=== PATIENT | female | born 1950 | race African-American/Black ===

== ENCOUNTER 2016-09-12 07:37 | Emergency (ER) | payer OTHER, MEDICARE ==
--- NOTE | 2016-09-12 08:27 | ERRECORD ---
[facility] EMERGENCY RECORD HPI FOOT (07:54 ABUS) CHIEF COMPLAINT: Patient presents for evaluation of injury, to the right foot, Patient presents for evaluation of pain, to the right foot. HISTORIAN: History provided by patient, 66 yr old with PMH of HTN who comes in with R foot injury (stepped into a hole while walking out in yard) and has had pain since then. She tried some aspirin. Can move toes and has normal feeling. MECHANISM OF INJURY: Mechanism of injury: Body motion. LOCATION: Symptoms are generalized. QUALITY: Pain is dull in nature, described as aching. SEVERITY: Currently symptoms are mild. TIME COURSE: Gradual onset of symptoms, 1, days priror to arrival, There has been no change in the patient's symptoms over time. ASSOCIATED WITH: Associated with pain on walking. EXACERBATED BY: Patient's condition exacerbated by nothing. RELIEVED BY: Patient's condition relieved by nothing. ROS (07:56 ABUS) CONSTITUTIONAL: Negative constitutional review of systems, Historian denies chills, denies fever. CARDIOVASCULAR: Negative cardiovascular review of systems, Historian denies chest pain, denies palpitations. RESPIRATORY: Negative respiratory review of systems, Historian denies cough, denies shortness of breath. GI: Negative gastrointestinal review of systems, Historian denies abdominal pain, denies constipation, denies diarrhea, denies nausea, denies vomiting. GENITOURINARY FEMALE: Negative genitourinary review of systems, Historian denies dysuria, denies frequency. MUSCULOSKELETAL: Historian reports arthralgias, reports injury. SKIN: Negative skin review of systems, Historian denies rash, denies skin changes. NEUROLOGIC: Negative neurologic review of systems, Historian denies headache. HEMO/LYMPHATIC: Normal hematologic/lymphatic system review, Historian denies abnormal blood clotting. PAST MEDICAL HISTORY (07:51 SFRE) MEDICAL HISTORY: Pneumococcal vaccine not up to date, Past medical history includes gastrointestinal disease, cirrhosis, Flu vaccine up to date, Tetanus immunization up to date, , Past medical history includes history of hypertension, which has been treated, Notes: Past medical history includes history of diabetes (DIET CONTROLLED), Past medical history includes history of hypertension, which has been treated, Past medical history includes history of malignancy, primary site breast. - was Left Breast - CA removed. Has "fluid in chest". &a-1R&a+25V*p+0X*s6193N*c202B*c15G*c2P*p-0X&a-25V&a+1R Name: Lj Schulte : 1950 F66 MedRec: [id number] AcctNum: [id number] Prepared: Alyssia Sep 12, 2016 08:43 by Interface Page 1 of 3 pMD [facility] EMERGENCY RECORD FEMALE SURGICAL HISTORY: Surgical history of cholecystectomy, Surgical history of hysterectomy, BREAST CA REMOVAL LEFT (LUMPECTOMY), Surgical history of hysterectomy. Large surgical scar - mid abdomen - patient states "I had roast of the liver. They did surgery." When asked what was done during surgery patient states, "I was asleep". "They took a lot of little things out.". PSYCHIATRIC HISTORY: Notes: denies, Notes: DENIES, Notes: DENIES. GERMAIN. 01-30-16. SOCIAL HISTORY: Patient denies alcohol use, Patient denies drug use, Patient has no smoking history, Lives at home, with family,. KNOWN ALLERGIES No Known Drug Allergies CURRENT MEDICATIONS (07:48 SFRE) amLODIPine: TABLET : Strength - 5 mg : ORAL Patient Dose: 10 mg Oral once a day. VITAL SIGNS (07:47 SFRE) VITAL SIGNS: BP: 120/65, Pulse: 73, Resp: 18, Temp: 97.8 (Tympanic), Pain: 9 (Sharp), O2 sat: 100 on Room Air, Time: 09/12/2016 07:47. PHYSICAL EXAM (07:56 ABUS) CONSTITUTIONAL: Vital signs reviewed, Patient afebrile, Pulse normal, Blood pressure normal, Respiratory rate normal, Patient appears non toxic, Patient appears pain free, Patient alert and oriented to person, place and time. NECK: Neck exam normal, Neck exam included findings of normal range of motion, Trachea midline, no meningeal signs, no cervical adenopathy, no tenderness. RESPIRATORY CHEST: Respiratory and chest exam normal, Respiratory exam included findings of no respiratory distress, Breath sounds clear. CARDIOVASCULAR: Cardiovascular assessment normal, Cardiovascular exam included findings of heart rate regular rate and rhythm, Heart sounds normal. ABDOMEN FEMALE: Abdominal exam included findings of abdomen nontender, Bowel sounds normal, no distension, no mass, no pulsatile masses, no peritoneal signs, no rigidity, no guarding, no rebound, Rovsing's sign absent. BACK: Back exam normal, Back exam included findings of normal inspection, range of motion normal, no tenderness. LOWER EXTREMITY: Sensation intact, Posterior tibial pulse normal, Pedal pulse normal, distal pulses intact, capillary refill less than 2 seconds, distal motor intact, distal sensory intact, no cyanosis, no clubbing, no edema. NEURO: Neuro exam normal, Neuro exam findings include patient &a-1R&a+25V*p+0X*h1181H*c202B*c15G*c2P*p-0X&a-25V&a+1R Name: Lj Schulte : 1950 F66 MedRec: [id number] AcctNum: [id number] Prepared: Alyssia Sep 12, 2016 08:43 by Interface Page 2 of 3 pMD [facility] EMERGENCY RECORD oriented to person, place and time, Speech normal, Gait normal. SKIN: Skin exam normal, Skin exam included findings of skin warm, dry, and normal in color, no rash. RADIOLOGYINTERPRETATION (08:20 ABUS) LOWER EXTREMITIES: Ankle films negative, on the right, no fracture, no dislocation, no foreign body, no bony lesion, Mortise normal. APPLICATION SOFTWARE DEVELOPER: Preliminary review of x-rays by, ED Physician, Radiologist. DOCTOR NOTES (07:56 ABUS) TEXT: 66 yr old with PMH of HTN who comes in with R foot injury (stepped into a hole while walking out in yard) and has had pain since then. She tried some aspirin. Can move toes and has normal feeling. DDX: Muscle strain, Muscle Spasm, Ligamentous Injury, Contusion, Soft Tissue Injury, Arthritis, Degenerative Joint Disease PLAN: Analgesics, X-ray IMAGING: Negative for acute fracture or dislocation DX: Ankle sprain Final Dispo: D/C Home with regular follow up and return precautions. All results of testing and evaluation were shared with the patient who verbalized understanding and agreement with the plan of care. Level of Complexity / Medical Decision Making: Moderate. PROBLEM LIST No recorded problems DIAGNOSIS (08:21 ABUS) FINAL: PRIMARY: Foot injury. PRESCRIPTION (07:58 ABUS) acetaminophen-codeine: TABLET : 300 mg-30 mg : ORAL : Quantity: 1 Unit: tab(s) Route: ORAL Schedule: every 6 hours PRN Dispense: 8 Unit: tab(s) May substitute. Refills: No Refills . NOTES: No Refills. DISPOSITION PATIENT: Disposition Type: Discharge, Disposition: *Discharge Home, Condition: Good. (08:21 ABUS) Patient left the department. (08:41 YAWE) Kim: AB=MD Yamile, Drake SFRE=REMY Ch, Laurie &a-1R&a+25V*p+0X*v0915O*c202B*c15G*c2P*p-0X&a-25V&a+1R Name: Lj Schulte : 1950 F66 MedRec: [id number] AcctNum: [id number] Prepared: Alyssia Sep 12, 2016 08:43 by Interface Page 3 of 3 pMD MTDD
--- NOTE | 2016-09-12 08:33 | PICIS ---
[facility] EMERGENCY RECORD TRIAGE (SunSep 12, 2016 07:48 SFRE) PATIENT: NAME: Lj Schulte, AGE: 66, GENDER: female, : Sun1950, TIME OF GREET: SunSep 12, 2016 07:38, PREFERRED LANGUAGE: Turkish, ETHNICITY: Not or , FALL RISK: NO, ECODE BILLING MAP: [facility], SSN: [id number], Zip Code: [address], KG WEIGHT: 63.50, PHONE: , , , PERSON ID: [id number], PCP: DO Chase Hillary. (SunSep 12, 2016 07:48 SFRE) TRIAGE NOTES: RIGHT FOOT INJURY. (SunSep 12, 2016 07:48 SFRE) COMPLAINT: RIGHT FT INJURY. (07:53 SFRE) ADMISSION: URGENCY: 4 Non Urgent, ADMISSION SOURCE: Home, TRANSPORT: Walk-in, BED: ED -05. (SunSep 12, 2016 07:48 SFRE) IMMUNIZATIONS: Flu vaccine up to date, Date of immunization: 2015, Pneumococcal vaccine not up to date. (07:51 SFRE) SIRS SCORING: Heart Rate 55-109 (0), Temp range 96.8-101.1 (0), respiratory rate 12-24 (0), Mental Status altered: no (0). (07:51 SFRE) TRIAGE SCREENING: Patient denies suicidal ideation, Patient denies presence of domestic violence. (07:51 SFRE) PROVIDERS: TRIAGE NURSE: Laurie Ch RN. (SunSep 12, 2016 07:48 SFRE) VITAL SIGNS: BP 120/65, Pulse 73, Resp 18, Temp 97.8, (Tympanic), Pain 9, (Sharp), O2 Sat 100, on Room Air, Time 09/12/2016 07:47. (07:47 SFRE) PREVIOUS VISIT ALLERGIES: No Known Drug Allergies. (SunSep 12, 2016 07:48 SFRE) No Known Drug Allergies. (07:51 SFRE) KNOWN ALLERGIES No Known Drug Allergies CURRENT MEDICATIONS (07:48 SFRE) amLODIPine: TABLET : Strength - 5 mg : ORAL Patient Dose: 10 mg Oral once a day. VITAL SIGNS (:47 SFRE) VITAL SIGNS: BP: 120/65, Pulse: 73, Resp: 18, Temp: 97.8 (Tympanic), Pain: 9 (Sharp), O2 sat: 100 on Room Air, Time: 09/12/2016 07:47. NURSING ASSESSMENT: EXTREMITY LOWER TRAUMA (07:55 SFRE) CONSTITUTIONAL: Patient arrives ambulatory, Gait steady, History obtained from patient, Patient appears, in distress due to pain, Patient cooperative, Patient alert, Oriented to person, place and time, Skin warm, Skin dry, Skin normal in color, Mucous membranes pink, Mucous membranes moist, Patient is well-groomed, Patient complains of RIGHT FOOT PAIN. MECHANISM OF INJURY: Mechanism of injury fall, &a-1R&a+25V*p+0X*t5204Y*c202B*c15G*c2P*p-0X&a-25V&a+1R Name: Lj Schulte : 1950 F66 MedRec: [id number] AcctNum: [id number] Prepared: d[place] Sep 12, 2016 08:50 by Interface Page 1 of 6 pMD [facility] EMERGENCY RECORD from standing, from height less than 3 feet, landing on right side, REPORTS SHE STEPPED IN A HOLE YESTERDAY. PAIN: sharp pain, to the right ankle, to the right foot, Onset of pain 09/11/2016, on a scale 0-10 patient rates pain as 9, Pain exacerbated by, ambulation, Nothing has been tried to alleviate the pain. RIGHT LOWER EXTREMITY: Right lower extremity assessment findings include capillary refill less than 2 seconds, Skin color normal, Skin temperature warm, Distal sensation intact, Muscle tone normal, Inspection findings include no abrasions, Inspection findings include no contusion, Inspection findings include no deformity, Inspection findings include no redness, Inspection findings include no signs of trauma, Inspection findings include no swelling. SAFETY: Side rails up, Cart/Stretcher in lowest position, Call light within reach, Hospital ID band on. NURSING PROCEDURE: DISCHARGE NOTE (08:40 SFRE) DISCHARGE: Patient discharged to home, ambulating without assistance, driving self, unaccompanied, Summary of Care printed/ provided, Patient requested and was provided an electronic copy of Discharge Instructions, Discharge instructions given to patient, Simple or moderate discharge teaching performed, by REMY VALENTE, F/U WITH PCP. RX DIRECTED. RETURN TO ED NEEDED FOR NEW/CONCERNING OR WORSENING SYMPTOMS., Prescriptions given and instructions on side effects given, Name of prescription(s) given: T3, Above person(s) verbalized understanding of discharge instructions and follow-up care. NURSING PROCEDURE: SPLINTING (08:39 SFRE) SPLINTING: Splinting indicated for pain control, Splint applied to, on the right foot, by REMY VALENTE, 4 inch aruna wrap applied, Immobilized in position of comfort. NURSING PROCEDURE: TRANSPORT TO TESTS (08:02 SFRE) TRANSPORT TO TESTS: Transport indicated to facilitate diagnosis, Patient transported to x-ray, via wheelchair, Accompanied by x-ray deburr technician. ORDER DETAILS Order Name: Miscellaneous Nurse Order(s), Status: Done, Time: 07:59 09/12/2016, User: GAETANO, - Ordered for: MD Ovalle Anthony, - Entered by: MD Ovalle Anthony - Tue Sep 12, 2016 07:58, - Quantity: 1, Order Name: XR Ankle Rt 3 View STANDARD, Status: Active, Time: 07:51 09/12/2016, User: GAETANO, - Ordered for: MD Ovalle Anthony, &a-1R&a+25V*p+0X*l9316B*c202B*c15G*c2P*p-0X&a-25V&a+1R Name: Lj Schulte : 1950 F66 MedRec: [id number] AcctNum: [id number] Prepared: Alyssia Sep 12, 2016 08:50 by Interface Page 2 of 6 pMD [facility] EMERGENCY RECORD - Entered by: REMY Ch Stacey - Tue Sep 12, 2016 07:51, - Quantity: 1, Order Name: XR Foot Rt 3 View STANDARD, Status: Active, Time: 07:51 09/12/2016, User: GAETANO, - Ordered for: MD Ovalle Anthony, - Entered by: REMY Ch Stacey - Tue Sep 12, 2016 07:51, - Quantity: 1. HPI FOOT (07:54 ABUS) CHIEF COMPLAINT: Patient presents for evaluation of injury, to the right foot, Patient presents for evaluation of pain, to the right foot. HISTORIAN: History provided by patient, 66 yr old with PMH of HTN who comes in with R foot injury (stepped into a hole while walking out in yard) and has had pain since then. She tried some aspirin. Can move toes and has normal feeling. MECHANISM OF INJURY: Mechanism of injury: Body motion. LOCATION: Symptoms are generalized. QUALITY: Pain is dull in nature, described as aching. SEVERITY: Currently symptoms are mild. TIME COURSE: Gradual onset of symptoms, 1, days priror to arrival, There has been no change in the patient's symptoms over time. ASSOCIATED WITH: Associated with pain on walking. EXACERBATED BY: Patient's condition exacerbated by nothing. RELIEVED BY: Patient's condition relieved by nothing. ROS (07:56 ABUS) CONSTITUTIONAL: Negative constitutional review of systems, Historian denies chills, denies fever. CARDIOVASCULAR: Negative cardiovascular review of systems, Historian denies chest pain, denies palpitations. RESPIRATORY: Negative respiratory review of systems, Historian denies cough, denies shortness of breath. GI: Negative gastrointestinal review of systems, Historian denies abdominal pain, denies constipation, denies diarrhea, denies nausea, denies vomiting. GENITOURINARY FEMALE: Negative genitourinary review of systems, Historian denies dysuria, denies frequency. MUSCULOSKELETAL: Historian reports arthralgias, reports injury. SKIN: Negative skin review of systems, Historian denies rash, denies skin changes. NEUROLOGIC: Negative neurologic review of systems, Historian denies headache. HEMO/LYMPHATIC: Normal hematologic/lymphatic system review, Historian denies abnormal blood clotting. PAST MEDICAL HISTORY (07:51 SFRE) MEDICAL HISTORY: Pneumococcal vaccine not up to date, &a-1R&a+25V*p+0X*q8755U*c202B*c15G*c2P*p-0X&a-25V&a+1R Name: Lj Schulte : 1950 F66 MedRec: [id number] AcctNum: [id number] Prepared: Alyssia Sep 12, 2016 08:50 by Interface Page 3 of 6 pMD [facility] EMERGENCY RECORD Past medical history includes gastrointestinal disease, cirrhosis, Flu vaccine up to date, Tetanus immunization up to date, , Past medical history includes history of hypertension, which has been treated, Notes: Past medical history includes history of diabetes (DIET CONTROLLED), Past medical history includes history of hypertension, which has been treated, Past medical history includes history of malignancy, primary site breast. - was Left Breast - CA removed. Has "fluid in chest". FEMALE SURGICAL HISTORY: Surgical history of cholecystectomy, Surgical history of hysterectomy, BREAST CA REMOVAL LEFT (LUMPECTOMY), Surgical history of hysterectomy. Large surgical scar - mid abdomen - patient states "I had roast of the liver. They did surgery." When asked what was done during surgery patient states, "I was asleep". "They took a lot of little things out.". PSYCHIATRIC HISTORY: Notes: denies, Notes: DENIES, Notes: DENIES. GERMAIN. 01-30-16. SOCIAL HISTORY: Patient denies alcohol use, Patient denies drug use, Patient has no smoking history, Lives at home, with family,. PHYSICAL EXAM (07:56 ABUS) CONSTITUTIONAL: Vital signs reviewed, Patient afebrile, Pulse normal, Blood pressure normal, Respiratory rate normal, Patient appears non toxic, Patient appears pain free, Patient alert and oriented to person, place and time. NECK: Neck exam normal, Neck exam included findings of normal range of motion, Trachea midline, no meningeal signs, no cervical adenopathy, no tenderness. RESPIRATORY CHEST: Respiratory and chest exam normal, Respiratory exam included findings of no respiratory distress, Breath sounds clear. CARDIOVASCULAR: Cardiovascular assessment normal, Cardiovascular exam included findings of heart rate regular rate and rhythm, Heart sounds normal. ABDOMEN FEMALE: Abdominal exam included findings of abdomen nontender, Bowel sounds normal, no distension, no mass, no pulsatile masses, no peritoneal signs, no rigidity, no guarding, no rebound, Rovsing's sign absent. BACK: Back exam normal, Back exam included findings of normal inspection, range of motion normal, no tenderness. LOWER EXTREMITY: Sensation intact, Posterior tibial pulse normal, Pedal pulse normal, distal pulses intact, capillary refill less than 2 seconds, distal motor intact, distal sensory intact, no cyanosis, no clubbing, no edema. NEURO: Neuro exam normal, Neuro exam findings include patient oriented to person, place and time, Speech normal, Gait normal. SKIN: Skin exam normal, Skin exam included findings of skin warm, dry, and normal in color, no rash. EVENTS &a-1R&a+25V*p+0X*z1767X*c202B*c15G*c2P*p-0X&a-25V&a+1R Name: Lj Schulte : 1950 F66 MedRec: [id number] AcctNum: [id number] Prepared: SunSep 12, 2016 08:50 by Interface Page 4 of 6 pMD [facility] EMERGENCY RECORD TRANSFER: Triage to Emergency Main ED -05. (SunSep 12, 2016 07:48 SFRE) Removed from Emergency Main ED -05. (08:41 SFRE) RADIOLOGYINTERPRETATION (08:20 ABUS) LOWER EXTREMITIES: Ankle films negative, on the right, no fracture, no dislocation, no foreign body, no bony lesion, Mortise normal. CLERK ANALYST: Preliminary review of x-rays by, ED Physician, Radiologist. DOCTOR NOTES (07:56 ABUS) TEXT: 66 yr old with PMH of HTN who comes in with R foot injury (stepped into a hole while walking out in yard) and has had pain since then. She tried some aspirin. Can move toes and has normal feeling. DDX: Muscle strain, Muscle Spasm, Ligamentous Injury, Contusion, Soft Tissue Injury, Arthritis, Degenerative Joint Disease PLAN: Analgesics, X-ray IMAGING: Negative for acute fracture or dislocation DX: Ankle sprain Final Dispo: D/C Home with regular follow up and return precautions. All results of testing and evaluation were shared with the patient who verbalized understanding and agreement with the plan of care. Level of Complexity / Medical Decision Making: Moderate. PROBLEM LIST No recorded problems DIAGNOSIS (08:21 ABUS) FINAL: PRIMARY: Foot injury. DISPOSITION PATIENT: Disposition Type: Discharge, Disposition: *Discharge Home, Condition: Good. (08:21 ABUS) Patient left the department. (08:41 SFRE) INSTRUCTION (08:22 ABUS) DISCHARGE: FOOT SPRAIN. FOLLOWUP: DO Cahse Hillary, [facility], [address] [place] [id number], , Follow up with Primary Care Physician as needed. SPECIAL: As discussed in the ER before you left, please follow up with your primary care doctor or call the referral made for you here in the ED today to establish outpatient follow up for your medical care. Please come back sooner if you start to develop fever, worsening pain, swelling, or symptoms that are new or symptoms the concern you. PRESCRIPTION (07:58 ABUS) &a-1R&a+25V*p+0X*x0321T*c202B*c15G*c2P*p-0X&a-25V&a+1R Name: Lj Schulte : 1950 F66 MedRec: [id number] AcctNum: [id number] Prepared: SunSep 12, 2016 08:50 by Interface Page 5 of 6 pMD [facility] EMERGENCY RECORD acetaminophen-codeine: TABLET : 300 mg-30 mg : ORAL : Quantity: 1 Unit: tab(s) Route: ORAL Schedule: every 6 hours PRN Dispense: 8 Unit: tab(s) May substitute. Refills: No Refills . NOTES: No Refills. IMAGING (08:39 SFRE) *DISCHARGE INSTRUCTIONS RECEIPT: Image captured from scanner. *SUPPLY CHARGE SHEET: Image captured from scanner. ADMIN DIGITAL SIGNATURE: MD Ovalle Anthony. (08:22 ABUS) MD Ovalle Anthony. (08:23 ABUS) REMY Ch Stacey. (08:40 SFRE) Kim: ABUS=MD Ovalle Anthony SFRE=REMY Ch Stacey &a-1R&a+25V*p+0X*o6555X*c202B*c15G*c2P*p-0X&a-25V&a+1R Name: Lj Schulte : 1950 F66 MedRec: [id number] AcctNum: [id number] Prepared: SunSep 12, 2016 08:50 by Interface Page 6 of 6 pMD MTDD
--- NOTE | 2016-09-12 09:17 | RAD ---
THREE VIEW RIGHT ANKLE: Indication: Stepped in a hole, pain. FINDINGS: No fracture or dislocation. There is prominent enthesopathy at the calcaneus. Scattered osteophyto sis. IMPRESSION: No acute fracture. POS: [facility]
--- NOTE | 2016-09-12 09:18 | RAD ---
THREE VIEW RIGHT FOOT: Indication: Stepping injury with pain. FINDINGS: Chronic appearing fracture deformity of the distal fourth metatarsal is present. No lisfranc disloc ation. Prominent calcaneal enthesopathy present. IMPRESSION: No acute process. POS: [facility]
== END 2016-09-12 08:35 | disposition home or self-care (01) ==
LOC: MADERS 07:37
DX: S99.921A Unspecified injury of right foot, initial encounter (principal); I10 Essential (primary) hypertension; E11.9 Type 2 diabetes mellitus without complications; Z79.899 Other long term (current) drug therapy; X58.XXXA Exposure to other specified factors, initial encounter
CPT/HCPCS: 99283

== ENCOUNTER 2016-10-03 09:27 | Outpatient (CLI) | payer OTHER, MEDICARE ==
[2016-10-03 10:03] LABS: #Basophils 0.1 thou/uL (0.0-0.2); #Eosinphils 0.1 thou/uL (0.0-0.7); #Lymphocytes 1.5 thou/uL (1.20-3.40); #Monocytes 0.3 thou/uL (0.11-0.59); #Neutrophils 2.5 thou/uL (1.40-6.50); %Basophils 1.6 % (0.0-1.0); %Eosinophils 2.5 % (0.0-10.0); %Lymphocytes 32.6 % (21.0-51.0); %Monocytes 7.2 % (0.0-10.0); %Neutrophils 56.2 % (42.0-75.0); Mean Corpuscular HGB CONC 31.6 g/dL (32.0-36.0); Mean Corpuscular Hemoglobin 26.9 pg (27.0-31.0); Mean Corpuscular Volume 84.9 fl (81.0-99.0); Mean Platelet Volume 9.7 fL (7.4-10.4); Platelet Count 197 thou/uL (130-400); RBC Distribution Width 11.7 % (11.5-14.5); Red Blood Cell (RBC) Count 4.84 mill/uL (4.20-5.40); White Blood Cell (WBC) Count 4.5 thou/uL (4.8-10.8)
[2016-10-03 10:17] LABS: INR-International Normal Ratio 1.1; Prothrombin Time 14.2 SEC (12.0-14.7)
[2016-10-03 10:27] LABS: ALT (SGPT) 16 U/L (0-55); AST (SGOT) 15 U/L (5-34); Albumin 4.5 g/dL (3.4-4.8); Alkaline Phosphatase 91 U/L (40-150); Anion Gap 18 mmol/L (10-20); BUN (Urea Nitrogen) 10 mg/dL (9.8-20.1); Bilirubin, Total 0.6 mg/dL (0.2-1.2); Calc. Creatinine Clearance 0 mL/min (70-130); Calcium 10.1 mg/dL (7.8-10.44); Carbon Dioxide 24 mmol/L (23-31); Cardiac Risk 3.7 (Less than 4.5); Chloride 102 mmol/L (98-107); Cholesterol 176 mg/dL (< 200 Desired); Estimated GFR-MDRD Greater than 90; Gamma GT (GGT) 55 U/L (9-36); Globulin 3.4 g/dL (2.4-3.5); Glucose 132 mg/dL (80-115); HDL Cholesterol 48 mg/dL (>60 Neg Risk); LDL Cholesterol, Calculated 101 mg/dL; Potassium 3.9 mmol/L (3.5-5.1); Protein, Total 7.9 g/dL (5.8-8.1); Sodium 140 mmol/L (136-145); Triglycerides 133 mg/dL (Less than 150)
== END 2016-10-03 09:28 | disposition home or self-care (01) ==
LOC: MADLABBHPM 09:27
PROVIDERS: ATTEND Family Medicine
DX: E11.9 Type 2 diabetes mellitus without complications (principal); K74.60 Unspecified cirrhosis of liver; M54.5 Low back pain
CPT/HCPCS: 36415; 80053; 80061; 82977; 83036; 85025; 85610; 87086

== ENCOUNTER 2016-11-21 06:22 | Emergency (ER) | payer OTHER, MEDICARE ==
[2016-11-21 06:49] LABS: Bilirubin Negative (Negative); Blood, Urine Negative (Negative); Clarity Clear (Clear); Glucose, Urine (Dipstick) Negative (Negative); Leukocyte Negative (Negative); Nitrite Negative (Negative); Protein, Urine (Dipstick) Negative (Neg-Trace); Specific Gravity, Urine 1.025 (1.005-1.030); pH, Urine 5.5 (5.0-9.0)
[2016-11-21 06:52] LABS: Bacteria/HPF Rare-Few HPF (None Seen); RBC/HPF 0-3 HPF (0-3); Squamous Epithelial 0-3 HPF (0-3)
== END 2016-11-21 07:13 | disposition home or self-care (01) ==
LOC: MADERS 06:22
DX: N30.90 Cystitis, unspecified without hematuria (principal); J02.8 Acute pharyngitis due to other specified organisms; I10 Essential (primary) hypertension; E11.9 Type 2 diabetes mellitus without complications
CPT/HCPCS: 81003; 81015; 99283

== ENCOUNTER 2017-02-13 09:00 | Emergency (ER) | payer OTHER, MEDICARE ==
[2017-02-13] MEDS ORDERED: Naproxen 500 MG TAB ONE (09:29)
[2017-02-13] MEDS ORDERED: Benzonatate 100 MG CAP ONE (09:29)
[2017-02-13] MEDS ORDERED: AMOXicillin 250 MG CAP ONE (09:30)
== END 2017-02-13 09:41 | disposition home or self-care (01) ==
LOC: MADERS 09:00
DX: J20.9 Acute bronchitis, unspecified (principal); I10 Essential (primary) hypertension; E11.9 Type 2 diabetes mellitus without complications; Z79.82 Long term (current) use of aspirin; Z79.899 Other long term (current) drug therapy; Z79.84 Long term (current) use of oral hypoglycemic drugs
CPT/HCPCS: 99283

== ENCOUNTER 2017-03-22 10:10 | Emergency (ER) | payer OTHER, MEDICARE ==
[2017-03-22] MEDS ORDERED: predniSONE 20 MG TAB ONE (11:11)
[2017-03-22] MEDS ORDERED: diphenhydrAMINE HCl 25 MG CAP ONE (11:11)
== END 2017-03-22 11:18 | disposition home or self-care (01) ==
LOC: MADERS 10:10
DX: T63.441A Toxic effect of venom of bees, accidental (unintentional), initial encounter (principal); K74.60 Unspecified cirrhosis of liver; I10 Essential (primary) hypertension; E11.9 Type 2 diabetes mellitus without complications
CPT/HCPCS: 99282; J7506

== ENCOUNTER 2017-04-10 10:25 | Outpatient (CLI) | payer MEDICARE ==
[2017-04-10 11:09] LABS: Hemoglobin A1c 8.3 % (4.0-6.0)
[2017-04-10 11:23] LABS: ALT (SGPT) 21 U/L (8-55); AST (SGOT) 15 U/L (5-34); Albumin 4.2 g/dL (3.4-4.8); Alkaline Phosphatase 91 U/L (40-150); Anion Gap 15 mmol/L (10-20); BUN (Urea Nitrogen) 9 mg/dL (9.8-20.1); Bilirubin, Total 0.5 mg/dL (0.2-1.2); Calc. Creatinine Clearance 0 mL/min (70-130); Calcium 9.7 mg/dL (7.8-10.44); Carbon Dioxide 27 mmol/L (23-31); Chloride 100 mmol/L (98-107); Estimated GFR-MDRD Greater than 90; Globulin 3.6 g/dL (2.4-3.5); Glucose 244 mg/dL (80-115); Potassium 3.9 mmol/L (3.5-5.1); Protein, Total 7.8 g/dL (6.0-8.3); Sodium 138 mmol/L (136-145)
[2017-04-11 00:31] LABS: Creatinine, Urine 141.88 mg/dL (47-110); Microalbumin Urine Less than 1.0 mg/dL (0.5-50.0)
== END 2017-04-10 10:26 | disposition home or self-care (01) ==
LOC: MADLABBHPM 10:25
PROVIDERS: ATTEND Family Medicine
DX: E11.9 Type 2 diabetes mellitus without complications (principal); K74.60 Unspecified cirrhosis of liver
CPT/HCPCS: 36415; 80053; 82043; 82140; 83036

== ENCOUNTER 2017-06-11 19:30 | Emergency (ER) | payer OTHER, MEDICARE ==
[~2017-06-11 19:30] MED LIST: Sodium Chloride 0.9% 1,000 ML BAG ONE
[2017-06-11] MEDS ORDERED: Morphine 10 MG/ML VIAL ONE (20:55)
[2017-06-11] MEDS ORDERED: Ondansetron HCl/PF 4 MG/2 ML Vial ONE (20:55)
[2017-06-11] MEDS ORDERED: Metoclopramide HCl 10 MG/2 ML VIAL ONE (20:55)
--- NOTE | 2017-06-11 21:27 | RAD ---
AP CHEST: History: Abdominal pain, vomiting. FINDINGS: The lungs are well aerated. No evidence of active intrathoracic disease seen. No evidence of effusio ns, pneumonia, or pneumothorax seen. Calcification of the aorta is seen. IMPRESSION: Unremarkable AP chest. POS: [facility]
[2017-06-11 21:30] LABS: ALT (SGPT) 30 U/L (8-55); AST (SGOT) 18 U/L (5-34); Alkaline Phosphatase 70 U/L (40-150); Anion Gap 20 mmol/L (10-20); BUN (Urea Nitrogen) 24 mg/dL (9.8-20.1); Bilirubin, Total 1.2 mg/dL (0.2-1.2); Calc. Creatinine Clearance 0 mL/min (70-130); Calcium 9.9 mg/dL (7.8-10.44); Carbon Dioxide 24 mmol/L (23-31); Chloride 100 mmol/L (98-107); Estimated GFR-MDRD Greater than 90; Globulin 3.9 g/dL (2.4-3.5); Glucose 198 mg/dL (80-115); Lipase 31 U/L (8-78); Potassium 3.7 mmol/L (3.5-5.1); Protein, Total 7.9 g/dL (6.0-8.3); Sodium 140 mmol/L (136-145)
[2017-06-11 21:31] LABS: #Basophils 0.1 thou/uL (0.0-0.2); #Lymphocytes 1.1 thou/uL (1.20-3.40); #Monocytes 0.8 thou/uL (0.11-0.59); #Neutrophils 10.1 thou/uL (1.40-6.50); %Basophils 0.7 % (0.0-1.0); %Eosinophils 0.1 % (0.0-10.0); %Lymphocytes 8.8 % (21.0-51.0); %Monocytes 6.9 % (0.0-10.0); %Neutrophils 83.5 % (42.0-75.0); Mean Corpuscular HGB CONC 32.5 g/dL (32.0-36.0); Mean Corpuscular Hemoglobin 27.9 pg (27.0-31.0); Mean Corpuscular Volume 85.8 fl (81.0-99.0); Platelet Count 273 thou/uL (130-400); RBC Distribution Width 11.9 % (11.5-14.5); Red Blood Cell (RBC) Count 5.01 mill/uL (4.20-5.40); White Blood Cell (WBC) Count 12.1 thou/uL (4.8-10.8)
[2017-06-11 22:05] LABS: Bilirubin Moderate (Negative); Blood, Urine Negative (Negative); Glucose, Urine (Dipstick) Negative (Negative); Leukocyte Negative (Negative); Nitrite Negative (Negative); Protein, Urine (Dipstick) 100 mg/dL (Neg-Trace); Specific Gravity, Urine 1.025 (1.005-1.030); Urobilinogen 0.2 mg/dL (0.2-1.0); pH, Urine 5.5 (5.0-9.0)
[2017-06-11 22:13] LABS: Bacteria/HPF 1+ HPF (None Seen); Clarity Hazy (Clear); RBC/HPF 0-3 HPF (0-3); Squamous Epithelial 21-50 HPF (0-3); Transitional Epithelial 0-3 HPF (0-3)
[2017-06-11 22:14] LABS: Crystals/HPF 1+ AMORPH URATES HPF (Negative)
[2017-06-12] MEDS ORDERED: Pantoprazole 40 MG VIAL ONE (00:01)
--- NOTE | 2017-06-12 00:03 | CT ---
CONTRAST ENHANCED CT IMAGES OF THE ABDOMEN AND PELVIS: History: Patient vomiting blood. Hernia repair 3 days ago. Technique: Contrast enhanced CT of the abdomen and pelvis was obtained after administration of IV an d oral contrast. Comparison: 03-25-16 FINDINGS: A small right sided pleural effusion is seen. No evidence of lung parenchymal lesions seen. No evide nce of free intraperitoneal air is seen. There is a periumbilical fluid collection with gas and liquid within it. This measures approximately 7.8 x 3.1 cm. This may represent post-surgical gas and fluid versus abscess. Abnormally dilated loo ps of small bowel are seen. They appear to be predominately in the proximal and mid small bowel. The more distal small bowel loops are not opacified with contrast although some appear to be dilated. T here appears to be a small bowel colonic anastomosis present. Some pockets of free air are seen with in the peritoneal cavity. This may be post-surgical. It may also represent possible small air leak o ut of the gastrointestinal tract. Extensive descending sigmoid colon diverticula are seen. Some gas is seen in the subcutaneous fat in the left anterior abdominal wall and small pockets are a lso seen in the right anterior abdominal wall. IMPRESSION: 1. Post-surgical changes in the anterior abdominal wall. 2. Collection of fluid anterior to the rectus muscles and within the subcutaneous fat. This may repr esent abscess or post-surgical changes. 3. Abnormally dilated loops of small bowel. 4. Small pockets of free air within the peritoneal cavity. 5. Descending sigmoid colonic diverticulosis. POS: [facility]
== END 2017-06-12 01:00 | disposition home or self-care (01) ==
LOC: MADERS 19:30
DX: N39.0 Urinary tract infection, site not specified (principal); K74.60 Unspecified cirrhosis of liver; E11.9 Type 2 diabetes mellitus without complications; I10 Essential (primary) hypertension; Z79.84 Long term (current) use of oral hypoglycemic drugs; Z79.899 Other long term (current) drug therapy; Z85.3 Personal history of malignant neoplasm of breast
CPT/HCPCS: 36415; 71010; 74177; 80053; 81001; 82150; 82271; 83690; 83880; 85025; 87077; 87086; 87186; 96361; 96374; 96375; C9113; J2270; J2405; J2765; J7050

== ENCOUNTER 2017-09-19 07:32 | Emergency (ER) | payer OTHER, MEDICARE ==
[2017-09-19] MEDS ORDERED: Ondansetron ODT 4 MG TAB ONE (08:02)
[2017-09-19 09:04] LABS: Bilirubin Negative (Negative); Blood, Urine Trace (Negative); Clarity Clear (Clear); Glucose, Urine (Dipstick) Negative (Negative); Leukocyte Negative (Negative); Nitrite Negative (Negative); Protein, Urine (Dipstick) Negative (Neg-Trace)
[2017-09-19 09:10] LABS: Bacteria/HPF Rare-Few HPF (None Seen); RBC/HPF 0-3 HPF (0-3); WBC/HPF 0-3 HPF (0-3)
== END 2017-09-19 09:36 | disposition home or self-care (01) ==
LOC: MADERS 07:32
DX: J06.9 Acute upper respiratory infection, unspecified (principal); R11.2 Nausea with vomiting, unspecified; I10 Essential (primary) hypertension; E11.9 Type 2 diabetes mellitus without complications; Z79.82 Long term (current) use of aspirin; Z79.84 Long term (current) use of oral hypoglycemic drugs; Z79.899 Other long term (current) drug therapy
CPT/HCPCS: 81003; 81015; 99283; Q0162

== ENCOUNTER 2017-11-07 07:16 | Emergency (ER) | payer MEDICARE, OTHER ==
[2017-11-07 07:52] LABS: Bilirubin Negative (Negative); Blood, Urine Negative (Negative); Clarity Clear (Clear); Glucose, Urine (Dipstick) Negative (Negative); Leukocyte Negative (Negative); Nitrite Negative (Negative); Protein, Urine (Dipstick) Negative (Neg-Trace); pH, Urine 6.5 (5.0-9.0)
== END 2017-11-07 08:00 | disposition home or self-care (01) ==
LOC: MADERS 07:16
DX: J06.9 Acute upper respiratory infection, unspecified (principal); R30.0 Dysuria; I10 Essential (primary) hypertension; E11.9 Type 2 diabetes mellitus without complications; K74.60 Unspecified cirrhosis of liver; Z79.899 Other long term (current) drug therapy; Z79.891 Long term (current) use of opiate analgesic
CPT/HCPCS: 81003; 99284

== ENCOUNTER 2017-11-18 07:15 | Emergency (ER) | payer OTHER, MEDICARE ==
[2017-11-18] MEDS ORDERED: Famotidine 20 MG TAB ONE (07:45)
[2017-11-18] MEDS ORDERED: HYDROcodone/Acetaminophen 10/325 mg Tablet ONE (07:45)
[2017-11-18 08:07] LABS: #Eosinphils 0.2 thou/uL (0.0-0.7); #Lymphocytes 1.5 thou/uL (1.20-3.40); #Monocytes 0.3 thou/uL (0.11-0.59); %Basophils 0.8 % (0.0-1.0); %Eosinophils 3.4 % (0.0-10.0); %Lymphocytes 30.4 % (21.0-51.0); %Monocytes 6.4 % (0.0-10.0); Mean Corpuscular Hemoglobin 28.1 pg (27.0-31.0); Mean Corpuscular Volume 85.3 fl (81.0-99.0); Mean Platelet Volume 10.6 fL (7.4-10.4); Platelet Count 163 thou/uL (130-400); RBC Distribution Width 12.3 % (11.5-14.5); Red Blood Cell (RBC) Count 4.26 mill/uL (4.20-5.40)
[2017-11-18 08:24] LABS: ALT (SGPT) 15 U/L (8-55); AST (SGOT) 16 U/L (5-34); Albumin 4.1 g/dL (3.4-4.8); Alkaline Phosphatase 94 U/L (40-150); Anion Gap 15 mmol/L (10-20); BUN (Urea Nitrogen) 9 mg/dL (9.8-20.1); Bilirubin, Direct 0.4 mg/dL (0.1-0.3); Calc. Creatinine Clearance 0 mL/min (70-130); Calcium 9.5 mg/dL (7.8-10.44); Carbon Dioxide 24 mmol/L (23-31); Chloride 103 mmol/L (98-107); Estimated GFR-MDRD Greater than 90; Glucose 202 mg/dL (80-115); Potassium 4.3 mmol/L (3.5-5.1); Protein, Total 7.3 g/dL (6.0-8.3); Sodium 138 mmol/L (136-145)
== END 2017-11-18 09:00 | disposition home or self-care (01) ==
LOC: MADERS 07:15
DX: K21.9 Gastro-esophageal reflux disease without esophagitis (principal); I10 Essential (primary) hypertension; E11.9 Type 2 diabetes mellitus without complications; Z79.899 Other long term (current) drug therapy; Z79.82 Long term (current) use of aspirin
CPT/HCPCS: 36415; 80048; 80076; 82150; 85025; 99284

== ENCOUNTER 2018-01-06 14:29 | Emergency (ER) | payer OTHER, MEDICARE ==
[2018-01-06] MEDS ORDERED: Ibuprofen 800 MG TAB ONE (15:01)
[2018-01-06] MEDS ORDERED: diphenhydrAMINE 25 MG CAP ONE (15:01)
[2018-01-06] MEDS ORDERED: Famotidine 20 MG TAB ONE (15:01)
[2018-01-06] MEDS ORDERED: methylPREDNISolone Sod Succ/PF 125 MG/2 ML VIAL ONE (15:01)
== END 2018-01-06 15:15 | disposition home or self-care (01) ==
LOC: MADERS 14:29
DX: T63.461A Toxic effect of venom of wasps, accidental (unintentional), initial encounter (principal); K74.60 Unspecified cirrhosis of liver; I10 Essential (primary) hypertension; E11.9 Type 2 diabetes mellitus without complications; Z85.3 Personal history of malignant neoplasm of breast; Z79.84 Long term (current) use of oral hypoglycemic drugs; Z79.899 Other long term (current) drug therapy; Z79.82 Long term (current) use of aspirin
CPT/HCPCS: 96372; J2930

== ENCOUNTER 2018-02-07 06:32 | Emergency (ER) | payer OTHER, MEDICARE | END 2018-02-07 06:50 | disposition home or self-care (01) | LOC: MADERS 06:32 | DX: T63.461A Toxic effect of venom of wasps, accidental (unintentional), initial encounter (principal); Z79.84 Long term (current) use of oral hypoglycemic drugs; Z79.82 Long term (current) use of aspirin | CPT/HCPCS: 99282 ==

== ENCOUNTER 2018-02-10 05:08 | Emergency (ER) | payer OTHER, MEDICARE ==
[2018-02-10 05:34] LABS: Bilirubin Negative (Negative); Blood, Urine Negative (Negative); Clarity Clear (Clear); Glucose, Urine (Dipstick) Negative (Negative); Leukocyte Negative (Negative); Nitrite Negative (Negative); Protein, Urine (Dipstick) Trace mg/dL (Neg-Trace); Specific Gravity, Urine 1.025 (1.005-1.030); Urobilinogen 0.2 mg/dL (0.2-1.0); pH, Urine 5.5 (5.0-9.0)
[2018-02-10] MEDS ORDERED: Fluconazole 100 MG TAB ONE (05:54)
== END 2018-02-10 06:00 | disposition home or self-care (01) ==
LOC: MADERS 05:08
DX: B37.3 Candidiasis of vulva and vagina (principal); K74.60 Unspecified cirrhosis of liver; E11.9 Type 2 diabetes mellitus without complications; I10 Essential (primary) hypertension; Z79.899 Other long term (current) drug therapy; Z79.82 Long term (current) use of aspirin; Z79.84 Long term (current) use of oral hypoglycemic drugs
CPT/HCPCS: 81003; 99283

== ENCOUNTER 2018-03-30 00:47 | Emergency (ER) | payer OTHER, MEDICARE ==
[2018-03-30] MEDS ORDERED: Acetaminophen 500 MG TAB ONE (01:01)
[2018-03-30] MEDS ORDERED: HYDROcodone/Acetaminophen 10/325 mg Tablet ONE (01:01)
[2018-03-30] MEDS ORDERED: Ibuprofen 800 MG TAB ONE (01:01)
== END 2018-03-30 01:25 | disposition home or self-care (01) ==
LOC: MADERS 00:47
DX: M70.51 Other bursitis of knee, right knee (principal); E11.9 Type 2 diabetes mellitus without complications; K74.60 Unspecified cirrhosis of liver; I10 Essential (primary) hypertension; M19.90 Unspecified osteoarthritis, unspecified site
CPT/HCPCS: 99283

== ENCOUNTER 2018-04-10 09:49 | Outpatient (CLI) | payer OTHER, MEDICARE ==
--- NOTE | 2018-04-10 12:22 | RAD ---
THREE VIEWS RIGHT KNEE: Date: 04-10-18 History: Right knee pain. Comparison: None available. FINDINGS: There is no fracture or dislocation present. Minimal osteophytes involve the patellofemoral joint and there is a superior patellar enthesophyte present. Small joint effusion is present in the suprapatel lar location. No joint space narrowing is appreciated. Vascular calcifications seen posterior to the knee. IMPRESSION: 1. Small right knee joint effusion. MRI right knee may be helpful for further evaluation if there is concern for internal derangement. 2. No acute osseous abnormality right knee. POS: [facility]
== END 2018-04-10 09:50 | disposition home or self-care (01) ==
LOC: MADRAD 09:49
PROVIDERS: ATTEND Family Medicine
DX: M25.561 Pain in right knee (principal); M25.461 Effusion, right knee

== ENCOUNTER 2018-07-24 07:24 | Emergency (ER) | payer OTHER, MEDICARE | END 2018-07-24 08:05 | disposition home or self-care (01) | LOC: MADERS 07:24 | DX: J06.9 Acute upper respiratory infection, unspecified (principal); R11.2 Nausea with vomiting, unspecified; D64.9 Anemia, unspecified; E11.9 Type 2 diabetes mellitus without complications; I10 Essential (primary) hypertension; Z79.899 Other long term (current) drug therapy; Z79.82 Long term (current) use of aspirin | CPT/HCPCS: 99283 ==

== ENCOUNTER 2018-08-29 07:31 | Emergency (ER) | payer OTHER, MEDICARE ==
--- NOTE | 2018-08-29 09:45 | RAD ---
AP CHEST: History: Congestion. Comparison: 06-11-17 FINDINGS: Lungs appear clear of infiltrate. Heart and mediastinum unremarkable. IMPRESSION: No acute finding. POS: [facility]
== END 2018-08-29 10:20 | disposition home or self-care (01) ==
LOC: MADERS 07:31
DX: J06.9 Acute upper respiratory infection, unspecified (principal); D64.9 Anemia, unspecified; E11.9 Type 2 diabetes mellitus without complications; I10 Essential (primary) hypertension; Z79.899 Other long term (current) drug therapy; Z79.82 Long term (current) use of aspirin
CPT/HCPCS: 71045; 87804

== ENCOUNTER 2019-01-10 10:16 | Emergency (ER) | payer OTHER, MEDICARE ==
[2019-01-10 10:48] LABS: Bilirubin Negative (Negative); Blood, Urine Negative (Negative); Clarity Clear (Clear); Glucose, Urine (Dipstick) 500 mg/dL (Negative); Leukocyte Negative (Negative); Nitrite Negative (Negative); Protein, Urine (Dipstick) Negative (Neg-Trace); pH, Urine 5.5 (5.0-9.0)
== END 2019-01-10 11:15 | disposition home or self-care (01) ==
LOC: MADERS 10:16
DX: J20.9 Acute bronchitis, unspecified (principal); D64.9 Anemia, unspecified; I10 Essential (primary) hypertension; E11.9 Type 2 diabetes mellitus without complications; Z79.82 Long term (current) use of aspirin; Z79.899 Other long term (current) drug therapy
CPT/HCPCS: 81003; 99283

== ENCOUNTER 2019-04-28 08:10 | Emergency (ER) | payer MEDICARE, OTHER ==
[2019-04-28 09:01] LABS: Bilirubin Negative (Negative); Blood, Urine Negative (Negative); Clarity Clear (Clear); Glucose, Urine (Dipstick) Negative (Negative); Leukocyte Negative (Negative); Nitrite Negative (Negative); Protein, Urine (Dipstick) Negative (Neg-Trace)
--- NOTE | 2019-04-28 09:44 | RAD ---
EXAM: Chest 2 views: HISTORY: Productive cough for one week COMPARISON: 10/26/2014 FINDINGS: There is a normal-sized cardiomediastinal silhouette. There is no evidence of consolidation, mass, or pleural effusion. The bones are unremarkable. IMPRESSION: No evidence of acute cardiopulmonary disease
== END 2019-04-28 10:10 | disposition home or self-care (01) ==
LOC: MADERS 08:10
DX: J20.8 Acute bronchitis due to other specified organisms (principal); R30.0 Dysuria; D64.9 Anemia, unspecified; E11.9 Type 2 diabetes mellitus without complications; I10 Essential (primary) hypertension; Z79.899 Other long term (current) drug therapy; Z79.82 Long term (current) use of aspirin
CPT/HCPCS: 71046; 81003

== ENCOUNTER 2019-05-24 02:57 | Emergency (ER) | payer MEDICARE, OTHER ==
[2019-05-24 03:20] LABS: Bilirubin Negative (Negative); Blood, Urine Negative (Negative); Clarity Clear (Clear); Glucose, Urine (Dipstick) 500 mg/dL (Negative); Leukocyte Trace (Negative); Nitrite Negative (Negative); Protein, Urine (Dipstick) Negative (Neg-Trace)
[2019-05-24 03:28] LABS: Bacteria/HPF Rare-Few HPF (None Seen); RBC/HPF None Seen HPF (0-3); Squamous Epithelial 0-3 HPF (0-3); WBC/HPF 0-3 HPF (0-3)
[2019-05-24 03:29] LABS: Mucous/LPF Rare LPF (<2+)
[2019-05-24 04:22] LABS: Hemoglobin 11.1 g/dL (12.0-16.0); Mean Corpuscular HGB CONC 31.3 g/dL (32.0-36.0); Mean Corpuscular Hemoglobin 26.3 pg (27.0-31.0); Mean Corpuscular Volume 84.1 fL (78.0-98.0); Mean Platelet Volume 10.1 fL (7.4-10.4); Platelet Count 172 thou/uL (130-400); RBC Distribution Width 13.1 % (11.5-14.5); Red Blood Cell (RBC) Count 4.21 mill/uL (4.20-5.40); White Blood Cell (WBC) Count 5.9 thou/uL (4.8-10.8)
[2019-05-24 04:27] LABS: ALT (SGPT) 14 U/L (8-55); AST (SGOT) 15 U/L (5-34); Albumin 4.1 g/dL (3.4-4.8); Alkaline Phosphatase 98 U/L (40-110); Anion Gap 16 mmol/L (10-20); BUN (Urea Nitrogen) 12 mg/dL (9.8-20.1); Bilirubin, Total 0.5 mg/dL (0.2-1.2); Calc. Creatinine Clearance 0 mL/min (70-130); Calcium 9.7 mg/dL (7.8-10.44); Carbon Dioxide 25 mmol/L (23-31); Chloride 102 mmol/L (98-107); Estimated GFR-MDRD 84; Globulin 3.7 g/dL (2.4-3.5); Glucose 302 mg/dL (80-115); Potassium 4.1 mmol/L (3.5-5.1); Protein, Total 7.8 g/dL (6.0-8.3); Sodium 139 mmol/L (136-145)
[2019-05-24] MEDS ORDERED: Sodium Chloride 0.9% 1,000 ML ONE (04:27)
[2019-05-24] MEDS ORDERED: Metoclopramide HCl 10 MG/2 ML VIAL ONE (04:27)
[2019-05-24] MEDS ORDERED: diphenhydrAMINE 50 MG/ML VIAL ONE (04:27)
[2019-05-24] MEDS ORDERED: Morphine 4 MG/ML VIAL ONE (04:27)
[2019-05-24 04:59] LABS: Band 4 % (5-11); Eosinophils 2 % (0-10); Lymphocytes 25 % (21-51); MDiff Complete? YES; Microcytosis SLIGHT = 6-15 cells (100X) (0-5/hpf); Monocytes 3 % (0-10); Neutrophil 66 % (42-75); Platelet Morphology Comment Appears Adequate
--- NOTE | 2019-05-24 09:28 | CT ---
PRELIMINARY REPORT/[facility]/EMERGENCY AFTER HOURS PROCEDURE: PROCEDURE INFORMATION: Exam: CT Head without contrast Exam date and time: 05/24/2019 4:37 AM Clinical history: 69 years old, female; Pain; Headache not specified TECHNIQUE: Imaging protocol: Computed tomography of the head without contrast. COMPARISON: No relevant prior studies available. FINDINGS: Brain: Normal. No hemorrhage. Unremarkable white matter. No mass effect. Ventricles: Normal. No ventriculomegaly. Bones/joints: Unremarkable. No acute fracture. Sinuses: Visualized sinuses are unremarkable. No fluid levels. Mastoid air cells: Visualized mastoid air cells are well aerated. Soft tissues: Unremarkable. IMPRESSION: No acute intracranial abnormality. Thank you for allowing us to participate in the care of your patient. Dictated and Authenticated by: Darren Diaz MD 05/24/2019 4:56 AM Central Time ([place] & [place]) FINAL REPORT EMERGENT AFTER HOURS NONCONTRAST CT HEAD: HISTORY: Headache. COMPARISON: None. IMPRESSION: 1. No acute intracranial abnormality is demonstrated. 2. Findings are in agreement with the preliminary report by [facility]. POS: OFF
== END 2019-05-24 05:55 | disposition home or self-care (01) ==
LOC: MADERS 02:57
DX: G43.909 Migraine, unspecified, not intractable, without status migrainosus (principal); E11.65 Type 2 diabetes mellitus with hyperglycemia; I10 Essential (primary) hypertension; Z79.899 Other long term (current) drug therapy
CPT/HCPCS: 70450; 80053; 81003; 81015; 83605; 83690; 85025; 96361; 96374; 96375; J1200; J2270; J2765; J7050

== ENCOUNTER 2019-07-10 06:55 | Emergency (ER) | payer OTHER, MEDICARE | END 2019-07-10 08:21 | disposition home or self-care (01) | LOC: MADERS 06:55 | DX: J02.0 Streptococcal pharyngitis (principal); E11.9 Type 2 diabetes mellitus without complications; I10 Essential (primary) hypertension; Z79.899 Other long term (current) drug therapy; Z79.82 Long term (current) use of aspirin; Z71.6 Tobacco abuse counseling | CPT/HCPCS: 99406 ==

== ENCOUNTER 2019-10-02 08:33 | Emergency (ER) | payer OTHER, MEDICARE ==
[2019-10-02] MEDS ORDERED: Ondansetron ODT 4 MG TAB ONE (08:59)
== END 2019-10-02 09:50 | disposition home or self-care (01) ==
LOC: MADERS 08:33
DX: J10.1 Influenza due to other identified influenza virus with other respiratory manifestations (principal); R11.10 Vomiting, unspecified; E11.9 Type 2 diabetes mellitus without complications; I10 Essential (primary) hypertension; D64.9 Anemia, unspecified; Z79.82 Long term (current) use of aspirin; Z79.899 Other long term (current) drug therapy
CPT/HCPCS: 87804; 99283; Q0162

== ENCOUNTER 2019-10-17 10:54 | Emergency (ER) | payer MEDICARE, OTHER ==
[2019-10-17 11:40] LABS: #Basophils 0.1 thou/uL (0.0-0.2); #Eosinphils 0.1 thou/uL (0.0-0.7); #Lymphocytes 1.6 thou/uL (1.20-3.40); #Monocytes 0.4 thou/uL (0.11-0.59); #Neutrophils 2.7 thou/uL (1.40-6.50); %Basophils 1.4 % (0.0-1.0); %Eosinophils 2.5 % (0.0-10.0); %Lymphocytes 33.1 % (21.0-51.0); %Monocytes 8.2 % (0.0-10.0); %Neutrophils 54.7 % (42.0-75.0); Hemoglobin 12.8 g/dL (12.0-16.0); Mean Corpuscular HGB CONC 30.4 g/dL (32.0-36.0); Mean Corpuscular Hemoglobin 25.8 pg (27.0-31.0); Mean Platelet Volume 11.1 fL (7.4-10.4); Platelet Count 195 thou/uL (130-400); RBC Distribution Width 11.9 % (11.5-14.5); Red Blood Cell (RBC) Count 4.96 mill/uL (4.20-5.40); White Blood Cell (WBC) Count 4.9 thou/uL (4.8-10.8)
[2019-10-17] MEDS ORDERED: Mag-Al Plus 1200 MG/1200 MG/120 MG/30 ML UDCUP ONE (11:47)
[2019-10-17] MEDS ORDERED: Lidocaine Viscous Sol 2% 15 ml UD Cup ONE (11:47)
[2019-10-17 11:53] LABS: ALT (SGPT) 15 U/L (8-55); AST (SGOT) 14 U/L (5-34); Albumin 4.3 g/dL (3.4-4.8); Alkaline Phosphatase 84 U/L (40-110); Anion Gap 13 mmol/L (10-20); BUN (Urea Nitrogen) 10 mg/dL (9.8-20.1); Bilirubin, Total 0.6 mg/dL (0.2-1.2); CK (CPK) 120 U/L (29-168); Calc. Creatinine Clearance 0 mL/min (70-130); Calcium 9.3 mg/dL (7.8-10.44); Carbon Dioxide 26 mmol/L (23-31); Chloride 104 mmol/L (98-107); Estimated GFR-MDRD Greater than 90; Globulin 3.6 g/dL (2.4-3.5); Glucose 190 mg/dL (80-115); Potassium 3.9 mmol/L (3.5-5.1); Protein, Total 7.9 g/dL (6.0-8.3); Sodium 139 mmol/L (136-145)
--- NOTE | 2019-10-17 12:12 | RAD ---
PORTABLE CHEST: Date: 10/17/2019 HISTORY: Chest pain. FINDINGS: Lung bledsoe are clear. No infiltrate or vascular congestion. Heart and mediastinum unremarkable. Comparison with 08/29/2018. IMPRESSION: No acute findings. POS: [facility]
== END 2019-10-17 12:22 | disposition home or self-care (01) ==
LOC: MADERS 10:54
DX: K29.70 Gastritis, unspecified, without bleeding (principal); R07.89 Other chest pain; I10 Essential (primary) hypertension; E11.9 Type 2 diabetes mellitus without complications; D64.9 Anemia, unspecified; Z79.899 Other long term (current) drug therapy; Z79.82 Long term (current) use of aspirin
CPT/HCPCS: 36415; 71045; 80053; 82550; 84484; 85025; 93005; 94760

== ENCOUNTER 2019-12-25 20:24 | Emergency (ER) | payer OTHER, MEDICARE ==
[2019-12-25] MEDS ORDERED: diphenhydrAMINE 25 MG CAP ONE (20:57)
== END 2019-12-25 21:13 | disposition home or self-care (01) ==
LOC: MADERS 20:24
DX: T63.461A Toxic effect of venom of wasps, accidental (unintentional), initial encounter (principal); E11.9 Type 2 diabetes mellitus without complications; I10 Essential (primary) hypertension; K74.60 Unspecified cirrhosis of liver; Z79.82 Long term (current) use of aspirin; Z79.899 Other long term (current) drug therapy
CPT/HCPCS: 96372; 99282; J1040; Q0163

== ENCOUNTER 2020-06-11 07:12 | Emergency (ER) | payer OTHER, MEDICARE ==
[2020-06-11] MEDS ORDERED: predniSONE 20 MG TAB ONE (08:00)
== END 2020-06-11 08:05 | disposition home or self-care (01) ==
LOC: MADERS 07:12
DX: T63.441A Toxic effect of venom of bees, accidental (unintentional), initial encounter (principal); E11.9 Type 2 diabetes mellitus without complications; I10 Essential (primary) hypertension; Z79.899 Other long term (current) drug therapy; Z79.82 Long term (current) use of aspirin
CPT/HCPCS: 99283; J7512

== ENCOUNTER 2021-03-03 05:11 | Emergency (ER) | payer OTHER, MEDICARE ==
[2021-03-03 05:49] LABS: #Basophils 0.1 thou/uL (0.0-0.2); #Eosinphils 0.2 thou/uL (0.0-0.7); #Lymphocytes 1.4 thou/uL (1.20-3.40); #Monocytes 0.4 thou/uL (0.11-0.59); #Neutrophils 2.7 thou/uL (1.40-6.50); %Basophils 1.4 % (0.0-1.0); %Eosinophils 4.1 % (0.0-10.0); %Monocytes 7.6 % (0.0-10.0); %Neutrophils 56.9 % (42.0-75.0); Hemoglobin 12.5 g/dL (12.0-16.0); Mean Corpuscular HGB CONC 30.3 g/dL (32.0-36.0); Mean Platelet Volume 10.5 fL (7.4-10.4); Platelet Count 183 thou/uL (130-400); Red Blood Cell (RBC) Count 4.63 mill/uL (4.20-5.40); White Blood Cell (WBC) Count 4.8 thou/uL (4.8-10.8)
[2021-03-03] MEDS ORDERED: Ondansetron PF 4 MG/2 ML Vial ONE (05:56)
[2021-03-03] MEDS ORDERED: Morphine 2 MG/ML VIAL ONE (05:56)
[2021-03-03] MEDS ORDERED: Sodium Chloride 0.9% 1,000 ML ONE (05:56)
[2021-03-03] MEDS ORDERED: Aspirin Chewable 81 MG TAB ONE (05:57)
[2021-03-03 06:09] LABS: ALT (SGPT) 13 U/L (8-55); AST (SGOT) 17 U/L (5-34); Albumin 4.2 g/dL (3.4-4.8); Alkaline Phosphatase 76 U/L (40-110); Anion Gap 15 mmol/L (10-20); BUN (Urea Nitrogen) 9 mg/dL (9.8-20.1); Bilirubin, Total 0.3 mg/dL (0.2-1.2); Calc. Creatinine Clearance 0 mL/min (70-130); Calcium 9.6 mg/dL (7.8-10.44); Carbon Dioxide 26 mmol/L (23-31); Chloride 104 mmol/L (98-107); Globulin 3.6 g/dL (2.4-3.5); Glucose 225 mg/dL (80-115); Lipase 41 U/L (8-78); Protein, Total 7.8 g/dL (5.8-8.1); Sodium 141 mmol/L (136-145)
[2021-03-03] MEDS ORDERED: Nitroglycerin 2% Ointment 1 INCH/1 GM Packet ONE (08:52)
[2021-03-03] MEDS ORDERED: Enoxaparin Sodium 80 MG/0.8 ML SYRINGE ONE (12:58)
[2021-03-03 13:04] LABS: CKMB 6.3 ng/mL (0-6.6)
== END 2021-03-03 13:40 | disposition short-term general hospital (02) ==
LOC: MADERS 05:11
DX: I21.4 Non-ST elevation (NSTEMI) myocardial infarction (principal); I24.9 Acute ischemic heart disease, unspecified; I10 Essential (primary) hypertension; E11.9 Type 2 diabetes mellitus without complications; Z79.82 Long term (current) use of aspirin; Z79.899 Other long term (current) drug therapy
CPT/HCPCS: 36415; 71046; 80053; 82553; 83690; 83880; 84484; 85025; 85379; 93005; 96372; 96374; 96375; J1650; J2270; J2405; J7050

== ENCOUNTER 2021-03-23 07:53 | Emergency (ER) | payer OTHER, MEDICARE | END 2021-03-23 08:13 | disposition home or self-care (01) | LOC: MADERS 07:53 | DX: T63.461A Toxic effect of venom of wasps, accidental (unintentional), initial encounter (principal); D64.9 Anemia, unspecified; K74.60 Unspecified cirrhosis of liver; E11.9 Type 2 diabetes mellitus without complications; I10 Essential (primary) hypertension; Z85.3 Personal history of malignant neoplasm of breast; Z79.82 Long term (current) use of aspirin; Z79.899 Other long term (current) drug therapy | CPT/HCPCS: 99282 ==

== ENCOUNTER 2021-06-15 06:13 | Emergency (ER) | payer OTHER, MEDICARE | END 2021-06-15 06:57 | disposition home or self-care (01) | LOC: MADERS 06:13 | DX: S29.011A Strain of muscle and tendon of front wall of thorax, initial encounter (principal); D64.9 Anemia, unspecified; E11.9 Type 2 diabetes mellitus without complications; I10 Essential (primary) hypertension; K74.60 Unspecified cirrhosis of liver; Z85.3 Personal history of malignant neoplasm of breast; Z79.82 Long term (current) use of aspirin; Z79.899 Other long term (current) drug therapy; X50.1XXA Overexertion from prolonged static or awkward postures, initial encounter | CPT/HCPCS: 99283 ==

== ENCOUNTER 2021-10-03 12:35 | Outpatient (CLI) | payer OTHER, MEDICARE ==
[2021-10-03 13:10] LABS: #Basophils 0.1 thou/uL (0.0-0.2); #Eosinphils 0.1 thou/uL (0.0-0.7); #Lymphocytes 1.7 thou/uL (1.20-3.40); #Monocytes 0.4 thou/uL (0.11-0.59); #Neutrophils 3.1 thou/uL (1.40-6.50); %Basophils 1.2 % (0.0-1.0); %Eosinophils 1.6 % (0.0-10.0); %Lymphocytes 32.1 % (21.0-51.0); %Monocytes 7.2 % (0.0-10.0); Hemoglobin 12.8 g/dL (12.0-16.0); Mean Corpuscular HGB CONC 30.4 g/dL (32.0-36.0); Mean Corpuscular Hemoglobin 26.1 pg (27.0-31.0); Mean Corpuscular Volume 85.8 fL (78.0-98.0); Mean Platelet Volume 9.5 fL (7.4-10.4); Platelet Count 219 thou/uL (130-400); RBC Distribution Width 11.7 % (11.5-14.5); White Blood Cell (WBC) Count 5.3 thou/uL (4.8-10.8)
[2021-10-03 13:28] LABS: ALT (SGPT) 12 U/L (8-55); AST (SGOT) 13 U/L (5-34); Albumin 4.5 g/dL (3.4-4.8); Alkaline Phosphatase 89 U/L (40-110); Anion Gap 15 mmol/L (10-20); BUN (Urea Nitrogen) 9 mg/dL (9.8-20.1); Calc. Creatinine Clearance 0 mL/min (70-130); Calcium 9.6 mg/dL (7.8-10.44); Carbon Dioxide 27 mmol/L (23-31); Cardiac Risk 3.3 (Less than 4.5); Chloride 103 mmol/L (98-107); Cholesterol 183 mg/dl (< 200 Desired); Globulin 3.1 g/dL (2.4-3.5); Glucose 152 mg/dL (80-115); HDL Cholesterol 55 mg/dL (>60 Neg Risk); LDL Cholesterol, Calculated 110 mg/dL; Potassium 3.8 mmol/L (3.5-5.1); Protein, Total 7.6 g/dL (5.8-8.1); Sodium 141 mmol/L (136-145); Triglycerides 89 mg/dL (Less than 150)
[2021-10-03 17:17] LABS: Hemoglobin A1c 7.5 % (4.0-6.0)
== END 2021-10-03 12:36 | disposition home or self-care (01) ==
LOC: MADLAB 12:35
PROVIDERS: ATTEND Family Medicine
DX: M25.562 Pain in left knee (principal); E11.9 Type 2 diabetes mellitus without complications; E78.2 Mixed hyperlipidemia; I10 Essential (primary) hypertension
CPT/HCPCS: 36415; 80053; 80061; 83036; 85025

== ENCOUNTER 2021-11-04 11:04 | Emergency (ER) | payer OTHER, MEDICARE ==
[2021-11-04 11:49] LABS: Bilirubin Negative (Negative); Blood, Urine Negative (Negative); Clarity Clear (Clear); Glucose, Urine (Dipstick) 100 mg/dL (Negative); Ketone, Urine Negative (Negative); Leukocyte Negative (Negative); Nitrite Negative (Negative); Protein, Urine (Dipstick) Negative (Neg-Trace); Specific Gravity, Urine 1.025 (1.005-1.030); Urobilinogen > or = 8.0 mg/dL (Less than 2)
== END 2021-11-04 12:26 | disposition home or self-care (01) ==
LOC: MADERS 11:04
DX: M54.50 Low back pain, unspecified (principal); M54.6 Pain in thoracic spine; E11.9 Type 2 diabetes mellitus without complications; I10 Essential (primary) hypertension; Z79.82 Long term (current) use of aspirin
CPT/HCPCS: 71046; 81003

== ENCOUNTER 2022-01-21 06:51 | Emergency (ER) | payer OTHER, MEDICARE ==
[2022-01-21] MEDS ORDERED: Ketorolac Tromethamine 30 MG/ML VIAL ONE (09:00)
== END 2022-01-21 09:45 | disposition home or self-care (01) ==
LOC: MADERS 06:51
DX: S63.501A Unspecified sprain of right wrist, initial encounter (principal); S00.81XA Abrasion of other part of head, initial encounter; E11.9 Type 2 diabetes mellitus without complications; I10 Essential (primary) hypertension; Z79.899 Other long term (current) drug therapy; W19.XXXA Unspecified fall, initial encounter
CPT/HCPCS: 29130; J1885

== ENCOUNTER 2022-03-14 10:02 | Outpatient (CLI) | payer OTHER, MEDICARE | END 2022-03-14 10:03 | disposition home or self-care (01) | LOC: MADLAB 10:02 → MADRAD 10:03 | PROVIDERS: ATTEND Family Medicine | DX: S89.92XA Unspecified injury of left lower leg, initial encounter (principal) ==

== ENCOUNTER 2022-07-21 07:33 | Emergency (ER) | payer OTHER, MEDICARE | END 2022-07-21 09:28 | disposition home or self-care (01) | LOC: MADERS 07:33 | DX: J10.1 Influenza due to other identified influenza virus with other respiratory manifestations (principal); I10 Essential (primary) hypertension; E11.9 Type 2 diabetes mellitus without complications; Z79.899 Other long term (current) drug therapy; Z20.822 Contact with and (suspected) exposure to COVID-19; Z79.82 Long term (current) use of aspirin | CPT/HCPCS: 70450; 71046; 87804; U0003; U0005 ==

== ENCOUNTER 2022-09-06 07:42 | Emergency (ER) | payer OTHER, MEDICARE ==
[2022-09-06] MEDS ORDERED: Dexamethasone 10 MG/ML VIAL ONE (08:32)
== END 2022-09-06 09:26 | disposition home or self-care (01) ==
LOC: MADERS 07:42
DX: J10.1 Influenza due to other identified influenza virus with other respiratory manifestations (principal); Z20.822 Contact with and (suspected) exposure to COVID-19; E11.9 Type 2 diabetes mellitus without complications; I10 Essential (primary) hypertension; Z79.899 Other long term (current) drug therapy; Z79.82 Long term (current) use of aspirin
CPT/HCPCS: 71046; 87804; 96372; J1100; U0003; U0005

== ENCOUNTER 2022-10-20 15:44 | Emergency (ER) | payer MEDICARE, OTHER | END 2022-10-20 16:25 | disposition home or self-care (01) | LOC: MADERS 15:44 | DX: M25.475 Effusion, left foot (principal); M25.472 Effusion, left ankle; E11.9 Type 2 diabetes mellitus without complications; I10 Essential (primary) hypertension; Z79.82 Long term (current) use of aspirin | CPT/HCPCS: 99283 ==

== ENCOUNTER 2022-11-22 12:24 | Emergency (ER) | payer OTHER, MEDICARE ==
[2022-11-22] MEDS ORDERED: Ipratropium/Albuterol 3 ML NEB ONE (12:43)
[2022-11-22] MEDS ORDERED: methylPREDNISolone Sod Succ/PF 125 MG/2 ML VIAL ONE (12:43)
== END 2022-11-22 13:38 | disposition home or self-care (01) ==
LOC: MADERS 12:24
DX: J06.9 Acute upper respiratory infection, unspecified (principal); E11.9 Type 2 diabetes mellitus without complications; I10 Essential (primary) hypertension; Z79.899 Other long term (current) drug therapy; Z79.82 Long term (current) use of aspirin
CPT/HCPCS: 71045; 96372; J2930; J7620

== ENCOUNTER 2023-03-21 10:57 | Outpatient (CLI) | payer OTHER, MEDICARE ==
[2023-03-21 12:05] LABS: ALT (SGPT) 13 U/L (8-55); AST (SGOT) 15 U/L (5-34); Albumin 4.5 g/dL (3.4-4.8); Alkaline Phosphatase 80 U/L (40-110); Anion Gap 14 mmol/L (10-20); BUN (Urea Nitrogen) 9 mg/dL (9.8-20.1); Bilirubin, Total 0.5 mg/dL (0.2-1.2); Calc. Creatinine Clearance 0 mL/min (70-130); Calcium 9.9 mg/dL (7.8-10.44); Carbon Dioxide 27 mmol/L (23-31); Chloride 104 mmol/L (98-107); Estimated GFR 90; Globulin 3.5 g/dL (2.4-3.5); Glucose 131 mg/dL (80-115); Potassium 3.8 mmol/L (3.5-5.1); Sodium 141 mmol/L (136-145)
== END 2023-03-21 10:58 | disposition home or self-care (01) ==
LOC: MADLABBHPM 10:57
PROVIDERS: ATTEND Internal Medicine
DX: E11.9 Type 2 diabetes mellitus without complications (principal)
CPT/HCPCS: 80053

== ENCOUNTER 2023-05-26 07:39 | Emergency (ER) | payer OTHER, MEDICARE ==
[2023-05-26] MEDS ORDERED: Ondansetron PF 4 MG/2 ML Vial ONE (08:16)
[2023-05-26] MEDS ORDERED: Aspirin Chewable 81 MG TAB ONE (08:16)
[2023-05-26] MEDS ORDERED: Nitroglycerin 0.4 MG TAB 1 EACH ONE (08:16)
[2023-05-26 08:49] LABS: Troponin I Less than 0.010 ng/mL (< 0.028)
[2023-05-26 08:50] LABS: ALT (SGPT) 12 U/L (8-55); AST (SGOT) 15 U/L (5-34); Albumin 4.3 g/dL (3.4-4.8); Alkaline Phosphatase 85 U/L (40-110); Anion Gap 16 mmol/L (10-20); BUN (Urea Nitrogen) 7 mg/dL (9.8-20.1); Bilirubin, Total 0.6 mg/dL (0.2-1.2); Calc. Creatinine Clearance 0 mL/min (70-130); Calcium 9.1 mg/dL (7.8-10.44); Carbon Dioxide 24 mmol/L (23-31); Chloride 102 mmol/L (98-107); Estimated GFR 91; Globulin 3.1 g/dL (2.4-3.5); Glucose 170 mg/dL (83-110); Lipase 25 U/L (8-78); Potassium 4.2 mmol/L (3.5-5.1); Protein, Total 7.4 g/dL (5.8-8.1); Sodium 138 mmol/L (136-145)
[2023-05-26] MEDS ORDERED: Oseltamivir 75 MG CAP ONE (08:52)
[2023-05-26 08:53] LABS: Band 1 % (5-11); Eosinophils 1 % (0-10); Hematocrit 42.9 % (36.0-47.0); Hemoglobin 13.2 g/dL (12.0-16.0); Lymphocytes 15 % (21-51); Mean Corpuscular HGB CONC 30.8 g/dL (32.0-36.0); Mean Corpuscular Hemoglobin 26.7 pg (27.0-31.0); Mean Corpuscular Volume 86.7 fl (78.0-98.0); Mean Platelet Volume 11.4 fL (7.4-10.4); Monocytes 9 % (0-10); Neutrophil 55 % (42-75); Platelet Count 191 10x3/uL (130-400); Red Blood Cell (RBC) Count 4.95 mill/uL (4.20-5.40)
[2023-05-26 08:54] LABS: MDiff Complete? YES; Manual Diff?? YES
[2023-05-26] MEDS ORDERED: Iopamidol 370 76% 200 ML VIAL ONE (09:31)
[2023-05-26 11:38] LABS: Troponin I Less than 0.010 ng/mL (< 0.028)
== END 2023-05-26 12:06 | disposition home or self-care (01) ==
LOC: MADERS 07:39
DX: K57.30 Diverticulosis of large intestine without perforation or abscess without bleeding (principal); J10.1 Influenza due to other identified influenza virus with other respiratory manifestations; E11.9 Type 2 diabetes mellitus without complications; K21.9 Gastro-esophageal reflux disease without esophagitis; Z79.82 Long term (current) use of aspirin; Z79.899 Other long term (current) drug therapy
CPT/HCPCS: 36415; 71275; 74174; 74177; 80053; 83605; 83690; 84484; 85025; 87804; 93005; 94760; 96374; J2405

== ENCOUNTER 2023-07-09 07:31 | Emergency (ER) | payer OTHER, MEDICARE | END 2023-07-09 08:56 | disposition home or self-care (01) | LOC: MADERS 07:31 | DX: J10.1 Influenza due to other identified influenza virus with other respiratory manifestations (principal); E11.9 Type 2 diabetes mellitus without complications; I10 Essential (primary) hypertension; Z79.82 Long term (current) use of aspirin; Z79.899 Other long term (current) drug therapy | CPT/HCPCS: 71046; 87081; 87430; 87804 ==

== ENCOUNTER 2023-07-18 09:32 | Emergency (ER) | payer OTHER, MEDICARE ==
[2023-07-18] MEDS ORDERED: Acetaminophen 500 MG TAB ONE (10:30)
== END 2023-07-18 10:42 | disposition home or self-care (01) ==
LOC: MADERS 09:32
DX: S93.401A Sprain of unspecified ligament of right ankle, initial encounter (principal); M19.071 Primary osteoarthritis, right ankle and foot; E11.9 Type 2 diabetes mellitus without complications; I10 Essential (primary) hypertension; Z79.899 Other long term (current) drug therapy; Z79.82 Long term (current) use of aspirin; X58.XXXA Exposure to other specified factors, initial encounter

== ENCOUNTER 2024-03-19 07:53 | Emergency (ER) | payer OTHER, MEDICARE | END 2024-03-19 09:55 | disposition home or self-care (01) | LOC: MADERS 07:53 | DX: J20.9 Acute bronchitis, unspecified (principal); S93.401A Sprain of unspecified ligament of right ankle, initial encounter; S93.601A Unspecified sprain of right foot, initial encounter; I10 Essential (primary) hypertension; E11.9 Type 2 diabetes mellitus without complications; Z79.82 Long term (current) use of aspirin; Z79.84 Long term (current) use of oral hypoglycemic drugs; X50.9XXA Other and unspecified overexertion or strenuous movements or postures, initial encounter | CPT/HCPCS: 71046 ==

== ENCOUNTER 2024-05-30 13:17 | Emergency (ER) | payer OTHER, MEDICARE ==
[2024-05-30 14:59] LABS: Band 7 % (5-11); Hematocrit 38.4 % (36.0-47.0); Hypochromia SLIGHT = 6-15 cells (100X) (0-5/hpf); Lymphocytes 21 % (21-51); MDiff Complete? YES; Mean Corpuscular HGB CONC 31.2 g/dL (32.0-36.0); Mean Corpuscular Hemoglobin 26.9 pg (27.0-31.0); Mean Corpuscular Volume 86.2 fl (78.0-98.0); Mean Platelet Volume 9.9 fL (7.4-10.4); Monocytes 4 % (0-10); Neutrophil 68 % (42-75); Platelet Adequacy Comment Appears Adequate; Platelet Count 188 10x3/uL (130-400); RBC Distribution Width 11.9 % (11.5-14.5); Red Blood Cell (RBC) Count 4.45 mill/uL (4.20-5.40); White Blood Cell (WBC) Count 5.8 10x3/uL (4.8-10.8)
[2024-05-30 15:02] LABS: ALT (SGPT) 12 U/L (8-55); AST (SGOT) 12 U/L (5-34); Albumin 3.6 g/dL (3.4-4.8); Alkaline Phosphatase 91 U/L (40-110); Anion Gap 17 mmol/L (10-20); BUN (Urea Nitrogen) 12 mg/dL (9.8-20.1); Bilirubin, Total 0.5 mg/dL (0.2-1.2); Calc. Creatinine Clearance 0 mL/min (70-130); Calcium 9.6 mg/dL (7.8-10.44); Carbon Dioxide 22 mmol/L (23-31); Chloride 106 mmol/L (98-107); Estimated GFR 78; Globulin 3.6 g/dL (2.4-3.5); Glucose 266 mg/dL (83-110); Potassium 3.6 mmol/L (3.5-5.1); Protein, Total 7.2 g/dL (5.8-8.1); Sodium 141 mmol/L (136-145)
[2024-05-30] MEDS ORDERED: HYDROcodone/Acetaminophen 5/325 mg Tablet ONE (15:56)
== END 2024-05-30 16:03 | disposition home or self-care (01) ==
LOC: MADERS 13:17
DX: M76.60 Achilles tendinitis, unspecified leg (principal); I10 Essential (primary) hypertension; R51.9 Headache, unspecified; E11.9 Type 2 diabetes mellitus without complications
CPT/HCPCS: 36415; 70450; 80053; 85025

== ENCOUNTER 2024-08-16 07:20 | Emergency (ER) | payer OTHER, MEDICARE | END 2024-08-16 08:53 | disposition home or self-care (01) | LOC: MADERS 07:20 | DX: J20.9 Acute bronchitis, unspecified (principal); E11.9 Type 2 diabetes mellitus without complications; I10 Essential (primary) hypertension; I25.2 Old myocardial infarction | CPT/HCPCS: 71045 ==

== ENCOUNTER 2025-03-28 05:41 | Emergency (ER) | payer OTHER, MEDICARE ==
[2025-03-28 06:18] LABS: Hematocrit 38.5 % (36.0-47.0); Hemoglobin 12.2 g/dL (12.0-16.0); MDiff Complete? YES; Mean Corpuscular Hemoglobin 27.1 pg (27.0-31.0); Mean Corpuscular Volume 85.7 fl (78.0-98.0); Platelet Count 195 10x3/uL (130-400); Red Blood Cell (RBC) Count 4.49 mill/uL (4.20-5.40); White Blood Cell (WBC) Count 4.9 10x3/uL (4.8-10.8)
[2025-03-28 06:36] LABS: ALT (SGPT) 12 U/L (Less than 34); AST (SGOT) 16 U/L (11-34); Albumin 4.1 g/dL (3.1-4.5); Alkaline Phosphatase 94 U/L (40-110); Anion Gap 18 mmol/L (10-20); BUN (Urea Nitrogen) 13 mg/dL (9.8-20.1); Bilirubin, Total 0.5 mg/dL (0.3-1.2); Calc. Creatinine Clearance 0 mL/min (70-130); Calcium 9.3 mg/dL (7.8-10.44); Carbon Dioxide 23 mmol/L (23-31); Chloride 106 mmol/L (98-107); Globulin 3.3 g/dL (2.4-3.5); Glucose 234 mg/dL (83-110); Lipase 38 U/L (8-78); Potassium 3.7 mmol/L (3.5-5.1); Sodium 143 mmol/L (136-145)
[2025-03-28 06:37] LABS: Troponin I Less than 0.010 ng/mL (< 0.028)
[2025-03-28 06:49] LABS: Glucose, Urine (Dipstick) 100 mg/dL (Negative); Leukocyte Small (Negative); Protein, Urine (Dipstick) Negative (Neg-Trace); Specific Gravity, Urine 1.020 (1.005-1.030)
[2025-03-28 06:53] LABS: CAUTI Indications for Culture Dysuria,urgency,freq; RBC/HPF None Seen HPF (0-3); WBC/HPF 0-3 HPF (0-3)
[2025-03-28 06:54] LABS: Urine Culture Reflex No No
[2025-03-28] MEDS ORDERED: Ketorolac Tromethamine 30 MG (1 mL) VIAL ONE (07:30)
[2025-03-28] MEDS ORDERED: Orphenadrine Citrate 60 MG/2 ML VIAL ONE (07:30)
[2025-03-28 07:41] LABS: Magnesium 1.6 mg/dL (1.6-2.6)
[2025-03-28] MEDS ORDERED: Iopamidol 370 76% 100 ML VIAL ONE (14:40)
== END 2025-03-28 09:54 | disposition home or self-care (01) ==
LOC: MADERS 05:41
DX: J20.9 Acute bronchitis, unspecified (principal); R10.9 Unspecified abdominal pain; I25.2 Old myocardial infarction; E11.9 Type 2 diabetes mellitus without complications; I10 Essential (primary) hypertension; Z79.82 Long term (current) use of aspirin; Z79.84 Long term (current) use of oral hypoglycemic drugs; Z79.899 Other long term (current) drug therapy
CPT/HCPCS: 71045; 71275; 74177; 80053; 81001; 83690; 83735; 83880; 84484; 85025; 87081; 87428; 87430; 93005; 96361; 96374; 96375; J1885; J2360; J2919; J7030; J7620; Q9967